=== PATIENT | female | born 1940 | race Caucasian/White ===

== ENCOUNTER 2017-05-06 17:19 | Inpatient (IN) | payer OTHER ==
--- NOTE | 2017-05-06 17:54 | DR.GENAD ---
HPI - PCP Primary Care Physician: HANNAH - Complaint/Symptoms Chief Complaint Doctors Comments: Generalized weakness, poor or intake for past few. She has also been dizzy. The son who is a nurse checked her BP and states she was orthstatic. She was started on Augmentin on 05/03/17 for a sinus infection. Chief Complaint:: FAMILY STATED "WE TOOK HER TO THE DOCTOR ON TUESDAY AND SHE HAD A SINUS INFECTION- WAS STARED ON AGUMENTIN 500MG PO BID AND SINCE SHE WILL NOT EAT OR DRINK. SHE HAS BEEN LEHARGIC" - Nurses notes reviewed Nurses Notes Review: Yes - Source History Provided: Family Member - Mode of Arrival Mode of Arrival: Wheelchair - Timing Onset of Chief Complaint: 05/03/17 Came on: Gradually - Modifying Factors Worsens:: standing Improves:: sitting/laying PMH - PMH Past Medical History: Yes Past Medical History: Alzheimers, CHF, Coronary Artery Disease, Hypertension Past Surgical History: Yes Surgical History: Hysterectomy - Family History History of Family Medical Conditions: Yes Family Medical History: Cancer, Hypertension - Social History Does patient currently use any type of tobacco product: No Have you used tobacco products in the last 12 months: No Type of Tobacco Use: None Does any household member use tobacco: No Alcohol Use: None Do you use any recreational Drugs:: No Lives With: Family Lives Where: Home - infectious screening In the last 2 months have you had wt loss of >10#?: NO Have you had fever, night sweats or hemotysis?: No Have you traveled outside the country in the last 6 months?: No Isolation: Standard ROS - Review of Systems Constitutional: Malaise, Fatigue Eyes: No Symptoms Reported ENTM: No Symptoms Reported Respiratoy: No Symptoms Reported Genitourinary: No Symptoms Reported Neurological: Weakness, Dizziness Musculoskeletal: No Symptoms Reported Integumentary: No Symptoms Reported Hematologic/Lymphatic: No Symptoms Reported Endocrine: No Symptoms Reported Psychiatric: No Symptoms Reported All Other Systems: Reviewed and Negative PE - Vital Signs Vitals: Temperature 97.8 F Pulse Rate [Apical] 69 Pulse Rate 45 Respiratory Rate 17 Blood Pressure [Right Arm] 142/62 Blood Pressure 133/61 O2 Sat by Pulse Oximetry 97 - General Limitations: No Limitations General Appearance: Alert, In No Apparent Distress - Head Head Exam: Atraumatic, Normocephalic - Eyes Eye exam: Normal Appearance, PERRL, EOMI - ENT ENT Exam: Normal Exam - Neck Neck Exam: Normal Inspection - Chest Chest Inspection: Normal Inspection, Symmetric Chest Wall Rise - Respiratory Respiratory Exam: Normal Lung Sounds Bilat - Cardiovascular Cardiovascular Exam: Bradycardia - Abdominal Exam Abdominal Exam: Normal Inspection, Normal Bowel Sounds, Soft - Extremities Extremities Exam: Normal Inspection, Normal Capillary Refill. negative: Tenderness, Edema, Joint Swelling, Calf Tenderness - Back Back Exam: Normal Inspection - Neurologic Neurological Exam: Alert, CN II-XII Intact, Reflexes Normal. negative: Oriented X3 - Psychiatric Psychiatric Exam: Normal Affect, Normal Mood, Flat Affect - Skin Skin Exam: Warm, Dry, Intact, Normal Color Course - Consultation Call Returned: 19:50 Consultation Comments: agrees with recommendation to admit to obs. - Education/Counseling Education/Counseling: Patient, Family, Counseling Educated On: Treatment, Diagnosis, Prognosis, Needs for Follow Up ROR - Labs Reviewed Result Diagrams: 05/06/17 17:30 05/06/17 17:30 Laboratory: WBC 13.1 X10^3/uL (3.6-10.0) H 05/06/17 17:30 RBC 4.79 X10^6/uL (3.5-5.4) 05/06/17 17:30 Hgb 13.7 g/dL (12.0-16.0) 05/06/17 17:30 Hct 39.9 % (36.0-47.0) 05/06/17 17:30 MCV 83.3 fL (80.0-100.0) 05/06/17 17:30 MCH 28.7 pg (27.0-34.0) 05/06/17 17:30 MCHC 34.4 g/dL (33.0-35.0) 05/06/17 17:30 RDW 14.0 % (11.6-16.5) 05/06/17 17:30 Plt Count 329 X10^3/uL (150.0-450.0) 05/06/17 17:30 MPV 8.2 fL (7.4-11.0) 05/06/17 17:30 Neut % 71.8 % (42.0-75.0) 05/06/17 17:30 Lymph % 24.3 % (21.0-51.0) 05/06/17 17:30 Weld % 3.2 % (0.0-13.0) 05/06/17 17:30 Eos % 0.2 % (0.9-2.9) L 05/06/17 17:30 Baso % 0.5 % (0.2-1.0) 05/06/17 17:30 Neut # 9.4 x10^3/uL (2.2-4.8) H 05/06/17 17:30 Lymph # 3.2 X10^3/uL (1.3-2.9) H 05/06/17 17:30 Weld # 0.4 x10^3/uL (0.3-0.8) 05/06/17 17:30 Eos # 0.0 x10^3/uL (0.0-0.2) 05/06/17 17:30 Baso # 0.1 X10^3/uL (0.0-0.1) 05/06/17 17:30 Absolute Nucleated RBC 0.0 /100WBC 05/06/17 17:30 Sodium 137 mmol/L (136-145) 05/06/17 17:30 Corrected Sodium 138 mmol/L (136-145) 05/06/17 17:30 Potassium 3.2 mmol/L (3.5-5.1) L 05/06/17 17:30 Chloride 97 mmol/L (98-107) L 05/06/17 17:30 Carbon Dioxide 31.4 mmol/L (21-32) 05/06/17 17:30 BUN 22 mg/dL (7-18) H 05/06/17 17:30 Creatinine 1.08 mg/dL (0.55-1.02) H 05/06/17 17:30 Est GFR (MDRD) Af Amer > 60 (>60) 05/06/17 17:30 Est GFR (MDRD) Non-Af 52 (>60) L 05/06/17 17:30 Glucose 147 mg/dL (65-99) H 05/06/17 17:30 Calcium 9.2 mg/dL (8.5-10.1) 05/06/17 17:30 Corrected Calcium 9.8 mg/dL (8.5-10.1) 05/06/17 17:30 Total Bilirubin 0.50 mg/dL (0.2-1.0) 05/06/17 17:30 AST 20 Units/L (15-37) 05/06/17 17:30 ALT 29 Units/L (12-78) 05/06/17 17:30 Alkaline Phosphatase 138 Units/L (46-116) H 05/06/17 17:30 Total Protein 7.5 g/dL (6.4-8.2) 05/06/17 17:30 Albumin 3.2 g/dL (3.4-5.0) L 05/06/17 17:30 Globulin 4.3 g/dL (2.5-4.5) 05/06/17 17:30 Albumin/Globulin Ratio 0.7 Ratio (1.1-2.1) L 05/06/17 17:30 TSH 3rd Generation 0.597 uIU/mL (0.358-3.74) 05/06/17 17:30 Specimen Type Catherized urine 05/06/17 18:07 Urine Color Dark yellow (YELLOW) 05/06/17 18:07 Urine Appearance Clear (CLEAR) 05/06/17 18:07 Urine pH 7.0 (5.0 - 8.0) 05/06/17 18:07 Ur Specific Labelle 1.015 (1.000-1.030) 05/06/17 18:07 Urine Protein 1+ (NEGATIVE) 05/06/17 18:07 Urine Glucose (UA) Negative (NEGATIVE) 05/06/17 18:07 Urine Ketones Negative (NEGATIVE) 05/06/17 18:07 Urine Occult Blood Negative (NEGATIVE) 05/06/17 18:07 Urine Nitrite Negative (NEGATIVE) 05/06/17 18:07 Urine Bilirubin Negative (NEGATIVE) 05/06/17 18:07 Urine Urobilinogen 1+ (NORMAL) 05/06/17 18:07 Ur Leukocyte Esterase 1+ (NEGATIVE) 05/06/17 18:07 Urine RBC None seen /HPF (NEGATIVE) 05/06/17 18:07 Urine WBC 0-2 /HPF (NEGATIVE) 05/06/17 18:07 Ur Squamous Epith Cells Rare /HPF (NEGATIVE) 05/06/17 18:07 Urine Bacteria Negative /HPF (NEGATIVE) 05/06/17 18:07 Urine Mucus Moderate /HPF (NEGATIVE) 05/06/17 18:07 Ur Culture Indicated? No/not indicated 05/06/17 18:07 - XRAY XRAY Interpreted by: Self (NAD) - EKG Rate: 48 [place]: Normal Rhythm: SB Block: None Hypertrophy: None - Diagnosis Discharge Problem: Weakness generalized, Bradycardia, Hypokalemia, Renal azotemia, Alzheimer's dementia - Discharge Plan Disposition: ADMITTED INPATIENT Condition: Stable - Follow ups/Referrals Follow ups/Referrals: BILLIE YOUNG [Primary Care Provider] - 3 days - Instructions
[2017-05-06] MEDS ORDERED: NS 1000 ML 1,000 ML IV ONE (18:10)
[2017-05-06 18:13] LABS: BASOPHILS # (AUTO) 0.1 X10^3/uL (0.0-0.1); BASOPHILS % (AUTO) 0.5 % (0.2-1.0); EOSINOPHILS % (AUTO) 0.2 % (0.9-2.9); HEMATOCRIT 39.9 % (36.0-47.0); HEMOGLOBIN 13.7 g/dL (12.0-16.0); LYMPHOCYTES # (AUTO) 3.2 X10^3/uL (1.3-2.9); LYMPHOCYTES % (AUTO) 24.3 % (21.0-51.0); MEAN CORPUSCULAR HEMOGLOBIN 28.7 pg (27.0-34.0); MEAN CORPUSCULAR HGB CONC 34.4 g/dL (33.0-35.0); MEAN CORPUSCULAR VOLUME 83.3 fL (80.0-100.0); MEAN PLATELET VOLUME 8.2 fL (7.4-11.0); MONOCYTES # (AUTO) 0.4 x10^3/uL (0.3-0.8); MONOCYTES % (AUTO) 3.2 % (0.0-13.0); NEUTROPHILS # (AUTO) 9.4 x10^3/uL (2.2-4.8); NEUTROPHILS % (AUTO) 71.8 % (42.0-75.0); PLATELET COUNT 329 X10^3/uL (150.0-450.0); RED BLOOD COUNT 4.79 X10^6/uL (3.5-5.4); WHITE BLOOD COUNT 13.1 X10^3/uL (3.6-10.0)
[2017-05-06] MEDS ORDERED: NS 1000 ML 1,000 ML ONE (18:16)
--- NOTE | 2017-05-06 18:18 | RAD ---
Examination: Portable AP chest History: Lethargic, sinus infection. Comparison reference: None Findings: Normal heart size with essentially clear lungs and pleural spaces. Impression: No acute chest disease demonstrated. Reported By:
[2017-05-06 18:19] LABS: BILIRUBIN,URINE NEGATIVE (NEGATIVE); BLOOD/HEMOGLOBIN,URINE NEGATIVE (NEGATIVE); GLUCOSE, URINE NEGATIVE (NEGATIVE); KETONES,URINE NEGATIVE (NEGATIVE); LEUKOCYTE ESTERASE ,URINE 1+ (NEGATIVE); NITRITES,URINE NEGATIVE (NEGATIVE); PROTEIN,URINE 1+ (NEGATIVE); UROBILINOGEN,URINE 1+ (NORMAL)
[2017-05-06 18:30] LABS: ALANINE AMINOTRANSFERASE 29 Units/L (12-78); ALBUMIN 3.2 g/dL (3.4-5.0); ALKALINE PHOSPHATASE 138 Units/L (46-116); ASPARTATE AMINO TRANSFERASE 20 Units/L (15-37); BLOOD UREA NITROGEN 22 mg/dL (7-18); CALCIUM 9.2 mg/dL (8.5-10.1); CARBON DIOXIDE 31.4 mmol/L (21-32); CHLORIDE 97 mmol/L (98-107); COR CA(FOR HYPOALB) 9.8 mg/dL (8.5-10.1); COR NA(FOR HYPERGLY) 138 mmol/L (136-145); CREATININE 1.08 mg/dL (0.55-1.02); SODIUM 137 mmol/L (136-145); TOTAL PROTEIN 7.5 g/dL (6.4-8.2); TSH (3RD GENERATION) 0.597 uIU/mL (0.358-3.74); eGFR BLACK RACES > 60 (>60); eGFR NON BLACK RACES 52 (>60)
[2017-05-06 18:43] LABS: APPEARANCE,URINE CLEAR (CLEAR); BACTERIA,URINE NEGATIVE /HPF (NEGATIVE); COLOR,URINE DARK YELLOW (YELLOW); MUCUS,URINE MODERATE /HPF (NEGATIVE); RBC,URINE NONE SEEN /HPF (NEGATIVE); SQUAMOUS EPITHELIAL CELL,UR RARE /HPF (NEGATIVE)
[2017-05-06] MEDS ORDERED: K-LYTE EFFERVESCENT ONE (19:32)
[2017-05-06] MEDS: K-LYTE EFFERVESCENT PO ONE (19:40)
[2017-05-06] MEDS ORDERED: TESSALON PERLES PO PRN ×2 (20:02→21:42)
[2017-05-06] MEDS ORDERED: LEVSIN/MAALOX/LIDOC VISC PO PRN ×2 (20:02→21:42)
[2017-05-06] MEDS ORDERED: NORVASC TAB 5 MG PO ONE (20:06)
[2017-05-06] MEDS: NS 1000 ML 1,000 ML IV SCH (20:59)
[2017-05-06] MEDS ORDERED: PATIENT'S HOME MEDICATION (Memantine Hcl [Namenda] 1 TAB) PO SCH (21:00)
[2017-05-06] MEDS ORDERED: RISPERIDONE PO SCH (21:00)
[2017-05-06] MEDS: LIPITOR TAB 10 MG PO SCH (22:04)
[2017-05-06] MEDS: ARICEPT TAB 10 MG PO SCH (22:04)
[2017-05-06] MEDS: NAMENDA TAB 10 MG PO SCH (22:05)
[2017-05-06] MEDS: PROzac PO SCH (22:05)
[2017-05-06] MEDS: AUGMENTIN 500 MG/125 MG TAB PO SCH (22:05)
[2017-05-07 05:30] LABS: BASOPHILS % (AUTO) 0.2 % (0.2-1.0); EOSINOPHILS % (AUTO) 0.3 % (0.9-2.9); HEMATOCRIT 35.7 % (36.0-47.0); HEMOGLOBIN 12.3 g/dL (12.0-16.0); LYMPHOCYTES # (AUTO) 2.7 X10^3/uL (1.3-2.9); LYMPHOCYTES % (AUTO) 24.2 % (21.0-51.0); MEAN CORPUSCULAR HEMOGLOBIN 28.8 pg (27.0-34.0); MEAN CORPUSCULAR HGB CONC 34.5 g/dL (33.0-35.0); MEAN CORPUSCULAR VOLUME 83.5 fL (80.0-100.0); MONOCYTES # (AUTO) 0.5 x10^3/uL (0.3-0.8); MONOCYTES % (AUTO) 4.7 % (0.0-13.0); NEUTROPHILS % (AUTO) 70.6 % (42.0-75.0); PLATELET COUNT 293 X10^3/uL (150.0-450.0); RED BLOOD COUNT 4.27 X10^6/uL (3.5-5.4); WHITE BLOOD COUNT 11.3 X10^3/uL (3.6-10.0)
[2017-05-07 05:55] LABS: ALANINE AMINOTRANSFERASE 24 Units/L (12-78); ALBUMIN 2.6 g/dL (3.4-5.0); ALKALINE PHOSPHATASE 114 Units/L (46-116); ASPARTATE AMINO TRANSFERASE 17 Units/L (15-37); BLOOD UREA NITROGEN 17 mg/dL (7-18); CARBON DIOXIDE 28.5 mmol/L (21-32); CHLORIDE 102 mmol/L (98-107); COR CA(FOR HYPOALB) 9.1 mg/dL (8.5-10.1); COR NA(FOR HYPERGLY) 138 mmol/L (136-145); CREATININE 0.85 mg/dL (0.55-1.02); SODIUM 138 mmol/L (136-145); TOTAL PROTEIN 6.2 g/dL (6.4-8.2); eGFR BLACK RACES > 60 (>60); eGFR NON BLACK RACES > 60 (>60)
[2017-05-07] MEDS ORDERED: POTASSIUM CHL 60 MEQ/NS 0.45% 500 ML IV PRN (06:07)
[2017-05-07] MEDS ORDERED: K-RIDER 10 MEQ/NS 100 ML 10 MEQ/100 ML BAG IV PRN (06:07)
[2017-05-07] MEDS ORDERED: MAGNESIUM SULFATE 1 GM/100 mL PREMIX 1 GM/100 ML BAG IV PRN (06:07)
[2017-05-07] MEDS ORDERED: POTASSIUM CHL 40 MEQ/NS 0.45% 500 ML IV PRN (06:07)
[2017-05-07] MEDS ORDERED: POTASSIUM CHLORIDE LIQ 20 MEQ UDC PO PRN (06:07)
[2017-05-07] MEDS ORDERED: K-LYTE EFFERVESCENT PO PRN (06:07)
[2017-05-07] MEDS: SYNTHROID 125 mcg TAB PO SCH (06:07)
[2017-05-07] MEDS ORDERED: MAG-OX TAB PO PRN (06:07)
[2017-05-07] MEDS: AUGMENTIN 500 MG/125 MG TAB PO SCH ×2 (08:58→20:48)
[2017-05-07] MEDS ORDERED: FLUVIRIN IM ONE (09:00)
[2017-05-07] MEDS ORDERED: PATIENT'S HOME MEDICATION (Risperidone [Risperidone] 1 TAB) PO SCH (09:00)
[2017-05-07] MEDS ORDERED: PREVNAR 13 IM ONE (09:00)
[2017-05-07] MEDS: NORVASC TAB 5 MG PO SCH (09:01)
[2017-05-07] MEDS: NS 1000 ML 1,000 ML IV SCH ×2 (09:02→21:30)
--- NOTE | 2017-05-07 15:57 | CT ---
HISTORY: Altered mental status Study: CT brain without contrast Comparison: None Technique: Multiple axial images of the brain were obtained from the skull base to the vertex without administra tion of IV contrast. Dose reduction techniques including Automated Exposure Control (AEC) and adjust ment of mA and kV were utilized. Findings: There is generalized atrophy and nonspecific white matter hypoattenuation likely related to moderate to advanced microvascular ischemic changes. No evidence of acute hemorrhage, midline shift, mass eff ect or abnormal extra-axial fluid collection. The ventricular system is symmetric and nondilated. T he soft tissues and osseous structures are unremarkable. The visualized paranasal sinuses are clear. IMPRESSION: 1. Cerebral volume loss and nonspecific white matter changes likely due to chronic microvascular dise ase. No acute intracranial abnormality identified. Reported By:
[2017-05-07] MEDS: HYDROCHLOROTHIAZIDE 25 MG TAB PO SCH (16:38)
[2017-05-07 17:59] LABS: BLOOD UREA NITROGEN 10 mg/dL (7-18); CALCIUM 8.3 mg/dL (8.5-10.1); CARBON DIOXIDE 28.5 mmol/L (21-32); CHLORIDE 106 mmol/L (98-107); COR NA(FOR HYPERGLY) 142 mmol/L (136-145); CREATININE 0.92 mg/dL (0.55-1.02); SODIUM 141 mmol/L (136-145); eGFR BLACK RACES > 60 (>60); eGFR NON BLACK RACES > 60 (>60)
[2017-05-07] MEDS: ARICEPT TAB 10 MG PO SCH (20:48)
[2017-05-07] MEDS: LIPITOR TAB 10 MG PO SCH (20:48)
[2017-05-07] MEDS: NAMENDA TAB 10 MG PO SCH (20:48)
[2017-05-07] MEDS: PROzac PO SCH (20:49)
[2017-05-08 06:13] LABS: BASOPHILS % (AUTO) 0.4 % (0.2-1.0); EOSINOPHILS # (AUTO) 0.1 x10^3/uL (0.0-0.2); EOSINOPHILS % (AUTO) 0.9 % (0.9-2.9); HEMATOCRIT 35.1 % (36.0-47.0); HEMOGLOBIN 11.9 g/dL (12.0-16.0); LYMPHOCYTES # (AUTO) 3.3 X10^3/uL (1.3-2.9); LYMPHOCYTES % (AUTO) 29.4 % (21.0-51.0); MEAN CORPUSCULAR HEMOGLOBIN 28.4 pg (27.0-34.0); MEAN CORPUSCULAR VOLUME 83.6 fL (80.0-100.0); MEAN PLATELET VOLUME 8.2 fL (7.4-11.0); MONOCYTES # (AUTO) 0.7 x10^3/uL (0.3-0.8); MONOCYTES % (AUTO) 5.8 % (0.0-13.0); NEUTROPHILS # (AUTO) 7.1 x10^3/uL (2.2-4.8); NEUTROPHILS % (AUTO) 63.5 % (42.0-75.0); PLATELET COUNT 302 X10^3/uL (150.0-450.0); WHITE BLOOD COUNT 11.3 X10^3/uL (3.6-10.0)
[2017-05-08] MEDS: K-LYTE EFFERVESCENT PO ONE ×2 (06:16→06:17)
[2017-05-08] MEDS: SYNTHROID 125 mcg TAB PO SCH (06:20)
[2017-05-08 06:25] LABS: ALANINE AMINOTRANSFERASE 23 Units/L (12-78); ALBUMIN 2.5 g/dL (3.4-5.0); ALKALINE PHOSPHATASE 105 Units/L (46-116); ASPARTATE AMINO TRANSFERASE 16 Units/L (15-37); BLOOD UREA NITROGEN 7 mg/dL (7-18); CALCIUM 8.1 mg/dL (8.5-10.1); CARBON DIOXIDE 26.9 mmol/L (21-32); CHLORIDE 105 mmol/L (98-107); COR CA(FOR HYPOALB) 9.3 mg/dL (8.5-10.1); CREATININE 0.89 mg/dL (0.55-1.02); SODIUM 140 mmol/L (136-145); TOTAL PROTEIN 5.9 g/dL (6.4-8.2); eGFR BLACK RACES > 60 (>60); eGFR NON BLACK RACES > 60 (>60)
[2017-05-08] MEDS: AUGMENTIN 500 MG/125 MG TAB PO SCH (09:00)
[2017-05-08] MEDS: NORVASC TAB 5 MG PO SCH (09:00)
[2017-05-08] MEDS ORDERED: NS + KCL 40 MEQ/L 1,000 ML IV SCH (09:00)
[2017-05-08] MEDS: HYDROCHLOROTHIAZIDE 25 MG TAB PO SCH (09:00)
[2017-05-08] MEDS: NS + KCL 20 MEQ/L 1,000 ML IV SCH ×2 (09:38→22:29)
--- NOTE | 2017-05-08 15:57 | RAD ---
History: Cough Study: Portable AP chest Comparison: May 06 Reported By:
[2017-05-08] MEDS ORDERED: ROCEPHIN VIAL 1 GM 1 GM in NS 50 ML IV + SPIKE MINIBAG* 50 ML IV SCH (19:15)
[2017-05-08] MEDS: NAMENDA TAB 10 MG PO SCH (21:07)
[2017-05-08] MEDS: LIPITOR TAB 10 MG PO SCH (21:08)
[2017-05-08] MEDS: PROzac PO SCH (21:08)
[2017-05-08] MEDS: NS 1000 ML 1,000 ML IV SCH (21:09)
[2017-05-08] MEDS: ARICEPT TAB 10 MG PO SCH (21:23)
[2017-05-08] MEDS: NS IV SCH (22:30)
[2017-05-08] MEDS: ROCEPHIN IV SCH (22:30)
[2017-05-09 05:30] LABS: BLOOD UREA NITROGEN 5 mg/dL (7-18); CALCIUM 8.2 mg/dL (8.5-10.1); CARBON DIOXIDE 26.5 mmol/L (21-32); CHLORIDE 107 mmol/L (98-107); CREATININE 0.86 mg/dL (0.55-1.02); SODIUM 141 mmol/L (136-145); eGFR BLACK RACES > 60 (>60); eGFR NON BLACK RACES > 60 (>60)
[2017-05-09 05:32] LABS: BASOPHILS % (AUTO) 0.5 % (0.2-1.0); EOSINOPHILS # (AUTO) 0.1 x10^3/uL (0.0-0.2); EOSINOPHILS % (AUTO) 1.4 % (0.9-2.9); HEMATOCRIT 34.6 % (36.0-47.0); LYMPHOCYTES # (AUTO) 3.5 X10^3/uL (1.3-2.9); LYMPHOCYTES % (AUTO) 32.9 % (21.0-51.0); MEAN CORPUSCULAR HEMOGLOBIN 29.1 pg (27.0-34.0); MEAN CORPUSCULAR HGB CONC 34.6 g/dL (33.0-35.0); MEAN CORPUSCULAR VOLUME 84.2 fL (80.0-100.0); MEAN PLATELET VOLUME 8.1 fL (7.4-11.0); MONOCYTES # (AUTO) 0.7 x10^3/uL (0.3-0.8); MONOCYTES % (AUTO) 6.4 % (0.0-13.0); NEUTROPHILS # (AUTO) 6.3 x10^3/uL (2.2-4.8); NEUTROPHILS % (AUTO) 58.8 % (42.0-75.0); PLATELET COUNT 296 X10^3/uL (150.0-450.0); RED BLOOD COUNT 4.12 X10^6/uL (3.5-5.4); WHITE BLOOD COUNT 10.7 X10^3/uL (3.6-10.0)
[2017-05-09] MEDS: SYNTHROID 125 mcg TAB PO SCH (08:13)
[2017-05-09] MEDS: NORVASC TAB 5 MG PO SCH (08:14)
[2017-05-09] MEDS: HYDROCHLOROTHIAZIDE 25 MG TAB PO SCH (08:14)
[2017-05-09] MEDS: ROCEPHIN IV SCH (08:55)
[2017-05-09] MEDS: NS IV SCH (08:55)
[2017-05-09] MEDS: NS 1000 ML 1,000 ML IV SCH ×2 (09:56→22:13)
[2017-05-09] MEDS: NS + KCL 20 MEQ/L 1,000 ML IV SCH ×2 (10:20→12:52)
[2017-05-09] MEDS: NAMENDA TAB 10 MG PO SCH (20:37)
[2017-05-09] MEDS: PROzac PO SCH (20:37)
[2017-05-09] MEDS: LIPITOR TAB 10 MG PO SCH (20:38)
[2017-05-09] MEDS: ARICEPT TAB 10 MG PO SCH (20:38)
[2017-05-10] MEDS: NS + KCL 20 MEQ/L 1,000 ML IV SCH (01:42)
[2017-05-10] MEDS: NS 1000 ML 1,000 ML IV SCH (03:51)
[2017-05-10 06:08] LABS: BASOPHILS % (AUTO) 0.5 % (0.2-1.0); EOSINOPHILS # (AUTO) 0.2 x10^3/uL (0.0-0.2); EOSINOPHILS % (AUTO) 1.7 % (0.9-2.9); HEMATOCRIT 35.3 % (36.0-47.0); HEMOGLOBIN 12.5 g/dL (12.0-16.0); LYMPHOCYTES # (AUTO) 3.1 X10^3/uL (1.3-2.9); LYMPHOCYTES % (AUTO) 30.6 % (21.0-51.0); MEAN CORPUSCULAR HEMOGLOBIN 29.1 pg (27.0-34.0); MEAN CORPUSCULAR HGB CONC 35.5 g/dL (33.0-35.0); MEAN CORPUSCULAR VOLUME 81.9 fL (80.0-100.0); MONOCYTES # (AUTO) 0.6 x10^3/uL (0.3-0.8); MONOCYTES % (AUTO) 6.2 % (0.0-13.0); NEUTROPHILS # (AUTO) 6.1 x10^3/uL (2.2-4.8); PLATELET COUNT 312 X10^3/uL (150.0-450.0)
[2017-05-10 06:16] LABS: ALANINE AMINOTRANSFERASE 25 Units/L (12-78); ALBUMIN 2.5 g/dL (3.4-5.0); ALKALINE PHOSPHATASE 123 Units/L (46-116); ASPARTATE AMINO TRANSFERASE 16 Units/L (15-37); BLOOD UREA NITROGEN 6 mg/dL (7-18); CALCIUM 8.5 mg/dL (8.5-10.1); CHLORIDE 104 mmol/L (98-107); COR CA(FOR HYPOALB) 9.7 mg/dL (8.5-10.1); CREATININE 0.88 mg/dL (0.55-1.02); SODIUM 139 mmol/L (136-145); TOTAL PROTEIN 6.3 g/dL (6.4-8.2); eGFR BLACK RACES > 60 (>60); eGFR NON BLACK RACES > 60 (>60)
[2017-05-10 06:58] VITALS: BMI 22.4
--- NOTE | 2017-05-10 10:45 | MRI ---
STUDY: MRI OF THE BRAIN WITHOUT AND WITH GADOLINIUM HISTORY: Confusion. Weakness. Altered mental status. Technique: Multiplanar multi-sequence MRI of the brain was obtained utilizing standard departmental p rotocol. Sagittal and axial T1, axial T2, FLAIR, diffusion (DWI/ADC) images through the brain were pe rformed. 13 cc of Omniscan was administered intravenously without reported complication following acquisition of informed written consent. Post gadolinium axial and coronal T1 weighted images were also performed and reviewed. Comparison: Head CT from May 07, 2017. Findings: Pre gadolinium brain: The sulci, cisterns and ventricles are prominent consistent with diffuse volume loss. There are confluent and scattered foci of T2 prolongation in the periventricular and subcortic al white matter of both hemispheres. This is a nonspecific finding which likely represents microangio pathic change in a patient of this age. There is no evidence of acute territorial infarction, hemorrhage, mass, mass effect, or midline shift . There are no abnormal intra-axial or extra-axial fluid collections. The major intracranial vascular flow voids appear intact. The left vertebral artery is dominant. Post gadolinium brain: Following the uneventful administration of intravenous gadolinium, there is no evidence of abnormal parenchymal or leptomeningeal enhancement. IMPRESSION: 1. No evidence of acute intracranial abnormality. 2. Nonspecific white matter change and volume loss. Reported By:
[2017-05-10] MEDS: NORVASC TAB 5 MG PO SCH (12:54)
[2017-05-10] MEDS: NS IV SCH (12:55)
[2017-05-10] MEDS: HYDROCHLOROTHIAZIDE 25 MG TAB PO SCH (12:55)
[2017-05-10] MEDS: ROCEPHIN IV SCH (12:55)
[2017-05-10] MEDS: SYNTHROID 125 mcg TAB PO SCH (12:57)
[2017-05-10] MEDS: PROzac PO SCH (20:39)
[2017-05-10] MEDS: ARICEPT TAB 10 MG PO SCH (20:39)
[2017-05-10] MEDS: NAMENDA TAB 10 MG PO SCH (20:40)
[2017-05-10] MEDS: LIPITOR TAB 10 MG PO SCH (20:40)
[2017-05-11] MEDS: NS 1000 ML 1,000 ML IV SCH ×3 (02:16→13:15)
[2017-05-11] MEDS: NS + KCL 20 MEQ/L 1,000 ML IV SCH ×4 (02:17→22:40)
[2017-05-11 05:55] LABS: ALANINE AMINOTRANSFERASE 25 Units/L (12-78); ALBUMIN 2.8 g/dL (3.4-5.0); ALKALINE PHOSPHATASE 138 Units/L (46-116); ASPARTATE AMINO TRANSFERASE 16 Units/L (15-37); BLOOD UREA NITROGEN 6 mg/dL (7-18); CALCIUM 9.1 mg/dL (8.5-10.1); CARBON DIOXIDE 28.6 mmol/L (21-32); CHLORIDE 102 mmol/L (98-107); COR CA(FOR HYPOALB) 10.1 mg/dL (8.5-10.1); COR NA(FOR HYPERGLY) 139 mmol/L (136-145); CREATININE 0.85 mg/dL (0.55-1.02); SODIUM 139 mmol/L (136-145); TOTAL PROTEIN 6.9 g/dL (6.4-8.2); eGFR BLACK RACES > 60 (>60); eGFR NON BLACK RACES > 60 (>60)
[2017-05-11 05:59] LABS: BASOPHILS # (AUTO) 0.1 X10^3/uL (0.0-0.1); BASOPHILS % (AUTO) 0.8 % (0.2-1.0); EOSINOPHILS # (AUTO) 0.2 x10^3/uL (0.0-0.2); EOSINOPHILS % (AUTO) 1.9 % (0.9-2.9); HEMATOCRIT 38.1 % (36.0-47.0); HEMOGLOBIN 13.3 g/dL (12.0-16.0); LYMPHOCYTES # (AUTO) 3.1 X10^3/uL (1.3-2.9); LYMPHOCYTES % (AUTO) 31.1 % (21.0-51.0); MEAN CORPUSCULAR HGB CONC 34.9 g/dL (33.0-35.0); MEAN CORPUSCULAR VOLUME 83.3 fL (80.0-100.0); MEAN PLATELET VOLUME 8.1 fL (7.4-11.0); MONOCYTES # (AUTO) 0.6 x10^3/uL (0.3-0.8); MONOCYTES % (AUTO) 6.4 % (0.0-13.0); NEUTROPHILS % (AUTO) 59.8 % (42.0-75.0); PLATELET COUNT 337 X10^3/uL (150.0-450.0); RED BLOOD COUNT 4.57 X10^6/uL (3.5-5.4); RED CELL DISTRIBUTION WIDTH 14.3 % (11.6-16.5)
[2017-05-11] MEDS: SYNTHROID 125 mcg TAB PO SCH (06:00)
[2017-05-11] MEDS: ROCEPHIN IV SCH (09:00)
[2017-05-11] MEDS: HYDROCHLOROTHIAZIDE 25 MG TAB PO SCH (09:00)
[2017-05-11] MEDS: NS IV SCH (09:00)
[2017-05-11] MEDS: NORVASC TAB 5 MG PO SCH (09:00)
[2017-05-11] MEDS ORDERED: K-DUR TAB 20 MEQ PO ONE (09:11)
[2017-05-11] MEDS ORDERED: K-DUR TAB 20 MEQ PO PRN (09:17)
[2017-05-11] MEDS: ARICEPT TAB 10 MG PO SCH (20:16)
[2017-05-11] MEDS: LIPITOR TAB 10 MG PO SCH (20:17)
[2017-05-11] MEDS: NAMENDA TAB 10 MG PO SCH (20:17)
[2017-05-11] MEDS: PROzac PO SCH (20:17)
[2017-05-12 05:30] LABS: BASOPHILS # (AUTO) 0.1 X10^3/uL (0.0-0.1); BASOPHILS % (AUTO) 0.7 % (0.2-1.0); EOSINOPHILS # (AUTO) 0.2 x10^3/uL (0.0-0.2); EOSINOPHILS % (AUTO) 2.3 % (0.9-2.9); HEMATOCRIT 35.1 % (36.0-47.0); LYMPHOCYTES # (AUTO) 3.1 X10^3/uL (1.3-2.9); LYMPHOCYTES % (AUTO) 34.6 % (21.0-51.0); MEAN CORPUSCULAR HEMOGLOBIN 28.8 pg (27.0-34.0); MEAN CORPUSCULAR HGB CONC 34.1 g/dL (33.0-35.0); MEAN CORPUSCULAR VOLUME 84.5 fL (80.0-100.0); MONOCYTES # (AUTO) 0.6 x10^3/uL (0.3-0.8); MONOCYTES % (AUTO) 6.6 % (0.0-13.0); NEUTROPHILS # (AUTO) 4.9 x10^3/uL (2.2-4.8); NEUTROPHILS % (AUTO) 55.8 % (42.0-75.0); PLATELET COUNT 308 X10^3/uL (150.0-450.0); RED BLOOD COUNT 4.15 X10^6/uL (3.5-5.4); RED CELL DISTRIBUTION WIDTH 14.6 % (11.6-16.5); WHITE BLOOD COUNT 8.9 X10^3/uL (3.6-10.0)
[2017-05-12 05:40] LABS: ALANINE AMINOTRANSFERASE 24 Units/L (12-78); ALBUMIN 2.5 g/dL (3.4-5.0); ALKALINE PHOSPHATASE 120 Units/L (46-116); ASPARTATE AMINO TRANSFERASE 14 Units/L (15-37); BLOOD UREA NITROGEN 8 mg/dL (7-18); CALCIUM 8.5 mg/dL (8.5-10.1); CARBON DIOXIDE 27.5 mmol/L (21-32); CHLORIDE 104 mmol/L (98-107); COR CA(FOR HYPOALB) 9.7 mg/dL (8.5-10.1); CREATININE 0.85 mg/dL (0.55-1.02); SODIUM 140 mmol/L (136-145); TOTAL PROTEIN 6.1 g/dL (6.4-8.2); eGFR BLACK RACES > 60 (>60); eGFR NON BLACK RACES > 60 (>60)
[2017-05-12] MEDS: NS 1000 ML 1,000 ML IV SCH (06:11)
[2017-05-12] MEDS: NS + KCL 20 MEQ/L 1,000 ML IV SCH (06:12)
[2017-05-12] MEDS: SYNTHROID 125 mcg TAB PO SCH (06:12)
[2017-05-12] MEDS: ROCEPHIN IV SCH (09:57)
[2017-05-12] MEDS: NS IV SCH (09:57)
[2017-05-12] MEDS: HYDROCHLOROTHIAZIDE 25 MG TAB PO SCH (09:57)
[2017-05-12] MEDS: NORVASC TAB 5 MG PO SCH (09:57)
[2017-05-12 12:48] VITALS: BP 115/57
== END 2017-05-12 14:45 | disposition home or self-care (01) | DRG 948 ==
LOC: ER 17:37 → ICU 19:57 → OBSVTOIN 05-08 13:00
PROVIDERS: ADMIT Internal Medicine; ATTEND Internal Medicine
PROC: 3E0234Z Introduction of Serum, Toxoid and Vaccine into Muscle, Percutaneous Approach (ICD-10-PCS; principal; 2017-05-07)
PROC: 3E0234Z Introduction of Serum, Toxoid and Vaccine into Muscle, Percutaneous Approach (ICD-10-PCS; 2017-05-07)
DX: R41.82 Altered mental status, unspecified (principal); E87.6 Hypokalemia; J20.8 Acute bronchitis due to other specified organisms; R00.1 Bradycardia, unspecified; I25.10 Atherosclerotic heart disease of native coronary artery without angina pectoris; I10 Essential (primary) hypertension; G30.8 Other Alzheimer's disease; F02.80 Dementia in other diseases classified elsewhere, unspecified severity, without behavioral disturbance, psychotic disturbance, mood disturbance, and anxiety; R79.89 Other specified abnormal findings of blood chemistry; R26.89 Other abnormalities of gait and mobility; R94.31 Abnormal electrocardiogram [ECG] [EKG]; Z23 Encounter for immunization; R48.8 Other symbolic dysfunctions; Z66 Do not resuscitate
CPT/HCPCS: 36415; 70450; 70553; 71010; 80048; 80053; 81001; 83735; 84443; 85025; 87040; 87086; 90686; 93005; 93010; 97535; 99218; 99231; 99284; 99285; A4216; A4222; 90670; G0378; J0696

== ENCOUNTER → 2017-05-16 | Outpatient (CLI) | payer OTHER ==
[2017-05-12 12:48] VITALS: BP 115/57
--- NOTE | 2017-05-16 18:40 | RAD ---
Examination: Left ankle, three views History: Swelling left foot and ankle Findings: Mild soft tissue swelling suggested but no evidence for fracture, dislocation, bone destruc tion or ankle joint asymmetry. Impression: No acute osseous abnormality demonstrated. Reported By:
--- NOTE | 2017-05-16 18:42 | RAD ---
Examination: Left foot, three views History: Pain and swelling Findings: No definite fracture, dislocation or osteolytic process. Plantar calcaneal enthesophyte. No articular deformity or soft tissue calcification. Impression: No acute process identified. Reported By:
== END ==
LOC: RAD 13:58
PROVIDERS: ATTEND Internal Medicine
DX: M25.572 Pain in left ankle and joints of left foot (principal); M79.89 Other specified soft tissue disorders
CPT/HCPCS: 73610; 73630

== ENCOUNTER 2017-06-30 03:54 | Emergency (ER) | payer OTHER ==
[2017-06-30 04:09] VITALS: BP 136/65; BMI 21.6
--- NOTE | 2017-06-30 04:22 | DR.GENAD ---
HPI - PCP Primary Care Physician: CATHERINE - HPI Comment HPI Comment: SHE FELL IN THE CARE HOME. FOUND ON THE FLOOR. - Complaint/Symptoms Chief Complaint Doctors Comments: FELL IN THE CARE HOME. PATIENT SLEEPY. HEMATOMA TO FOREHEAD NOTED. Chief Complaint:: FELL APROX 0330, HEMATOMA TO FOREHEAD AND NOSE, Self Treatment fo Chief Complaint: ICE PACK - Nurses notes reviewed Nurses Notes Review: Yes - Source History Provided: Patient, Group Home - Mode of Arrival Mode of Arrival: Stretcher - Timing Onset of Chief Complaint: 06/30/17 Came on: Suddenly - Duration Duration: Constant Duration: Minutes - Severity Severity: Moderate PMH - PMH Past Medical History: Yes Past Medical History: Alzheimers, CHF, Coronary Artery Disease, Hypertension Past Surgical History: Yes Surgical History: Hysterectomy - Family History History of Family Medical Conditions: Yes Family Medical History: Diabetes Mellitus, [place], Heart Failure, Hypertension - Social History Does patient currently use any type of tobacco product: No Have you used tobacco products in the last 12 months: No Type of Tobacco Use: None Does any household member use tobacco: No Alcohol Use: None Do you use any recreational Drugs:: No Lives With: Other Lives Where: Group Home - infectious screening In the last 2 months have you had wt loss of >10#?: NO Have you had fever, night sweats or hemotysis?: No Have you traveled outside the country in the last 6 months?: No Isolation: Standard ROS - Review of Systems Constitutional: Other (SLEEPY) Eyes: Other (FOREHEAD HEMATOMA) ENTM: Nose Pain. negative: Ear Pain, Epistaxis Respiratoy: negative: Wheezing, Hemoptysis Cardiovascular: negative: Edema, Cyanosis Gastrointestinal/Abdominal: negative: Diarrhea, Nausea, Vomiting Genitourinary: negative: Hematuria, Bleeding Neurological: Problems Walking Musculoskeletal: Neck Pain, Other (NOSE DEFORMITY.) Integumentary: Bruises Hematologic/Lymphatic: Easy Bleeding, Easy Bruising Endocrine: negative: Flushing Unable to Obtain Due To: Altered mental status PE - Vital Signs Vitals: Temperature 98.3 F Pulse Rate 90 Respiratory Rate 18 Blood Pressure [Right Arm] 115/57 Blood Pressure 136/65 O2 Sat by Pulse Oximetry 98 - General Limitations: Altered Mental Status General Appearance: Other (SLEEPY BUT AROUSABLE.) - Head Head Exam: Other (FOREHEAD HEMATOMA MIDLINE AREA.) - Eyes Eye exam: PERRL - ENT ENT Exam: Normal Oropharynx, Normal External Ear Exam, TM's Normal Bilaterally External Ear Exam: Normal External Inspection TM/Canal Exam: Bilateral Normal Nose Exam: Nasal Deviation (TO LEFT), Abrasion, Other (NOSE TENDER WITH OBVIOUS DEFORMITY,) Mouth Exam: Normal Inspection Throat Exam: Normal Inspection - Neck Neck Exam: Trachea Midline - Chest Chest Inspection: Symmetric Chest Wall Rise - Respiratory Respiratory Exam: Normal Lung Sounds Bilat Respiratory Exam: Bilateral Rhonchi, Lower Rhonchi - Cardiovascular Cardiovascular Exam: Regular Rate, Normal Rhythm, Normal Heart Sounds - Abdominal Exam Abdominal Exam: Normal Bowel Sounds, Soft, Distention. negative: Tenderness - Extremities Extremities Exam: negative: Joint Swelling - Neurologic Neurological Exam: Other (SLEEPY BUT AROUSABLE) - Psychiatric Psychiatric Exam: Other (SLEEPY) - Skin Skin Exam: Erythema MDM - Additional Information Additional Information Obtained From: Log Rafter (CARE HOME STAFF.) - Differential Diagnosis Differential Diagnosis: CONTUSION, SPRAIN, STRAIN AND FRACTURE. HEMATOMA FOREHEAD. Course - Treatment Treatment: SEE ORDERS. - Education/Counseling Educated On: Diagnosis, Needs for Follow Up, Other (CARE HOME STAFF) ROR - XRAY XRAY Interpreted by: Radiologist XRAY Findings: REPORT NOTED - Diagnosis Discharge Problem: Cervical strain Traumatic hematoma of forehead Qualifiers: Encounter type: initial encounter Qualified Code(s): S00.83XA - Contusion of other part of head, initial encounter Nasal bone fracture Qualifiers: Encounter type: initial encounter Fracture type: closed Qualified Code(s): S02.2XXA - Fracture of nasal bones, initial encounter for closed fracture - Discharge Plan Disposition: 03 XFER SNF Condition: Stable - Follow ups/Referrals Follow ups/Referrals: CHELLE ALEXANDER [Primary Care Provider] - 3 days - Instructions Instructions: Cervical Strain and Sprain With Rehab-SportsMed, Nasal Fracture, [id number], Hematoma Additional Instructions: RETURN TO ED IF WORSE.
--- NOTE | 2017-06-30 04:48 | CT ---
CT brain without contrast Indication: Hematoma to forehead Comparison: 05/07/2017 Technique: Multiple axial images of the brain were obtained from the skull base to the vertex without administra tion of IV contrast. Findings: Large midline supraorbital frontal scalp hematoma without subjacent fracture. There is moderate bilateral periventricular and deep white matter hypoattenuation which is nonspecifi c however unchanged from prior examination and likely represent sequela of chronic microvascular isch emic disease. Generalized cerebral atrophy is also unchanged. No acute intraparenchymal hemorrhage or mass can be identified. No extra-axial fluid collections are seen. No alteration in the attenuation of the brain parenchyma can be identified to suggest acute o r subacute ischemic change. The ventricular system is symmetric and nondilated. The extracranial st ructures are grossly unremarkable. IMPRESSION: No acute intracranial hemorrhage. Large midline supraorbital frontal scalp hematoma without subjacent fracture. Stable generalized cerebral atrophy with bilateral periventricular deep white matter hypoattenuation which is nonspecific however likely represent sequela of chronic microvascular ischemic disease. Reported By:
--- NOTE | 2017-06-30 04:50 | CT ---
CT facial bones without contrast Indication: Forehead hematoma after fall Comparison: None available Technique: Multiple axial images of the facial structures were obtained from the mandible to superior portions of the orbits. Findings: There is nondisplaced fracture of the left nasal bone with buckling of the knee joint. Bony nasal sep kristina remains intact and midline. The visualized paranasal sinuses appear unremarkable without significant mucosal thickening or air-fl uid levels. The mandible as well as the surrounding bony structures appear unremarkable. The visual ized portions of the orbits as well as the globe within the right and left orbit are unremarkable in their CT appearance. IMPRESSION: Age-indeterminate minimally depressed left nasal bone fracture. Reported By:
--- NOTE | 2017-06-30 04:53 | CT ---
CT cervical spine without contrast Indication: Fall Comparison: None available Technique: Multiple axial images of the cervical spine were obtained from the skull base to the thora cic inlet without administration of IV contrast. Sagittal and coronal reformats were performed and r eviewed. Findings: Alignment of the cervical spine is maintained. No evidence for acute cortical disruption or subluxat ion can be seen. The posterior elements appear unremarkable. The prevertebral soft tissues are norm al in their appearance. In addition, the surrounding paraspinous soft tissues are unremarkable. Multilevel spondylosis noted most severely at C5-6 and C6-7 with moderate bilateral facet arthropathy at C7-T1. IMPRESSION: 1. No evidence for traumatic injury of the cervical spine. Reported By:
== END 2017-06-30 05:28 ==
LOC: ER 03:54
DX: S13.4XXA Sprain of ligaments of cervical spine, initial encounter (principal); S00.83XA Contusion of other part of head, initial encounter; S02.2XXA Fracture of nasal bones, initial encounter for closed fracture; W19.XXXA Unspecified fall, initial encounter; Y92.129 Unspecified place in nursing home as the place of occurrence of the external cause
CPT/HCPCS: 70450; 70486; 72125; 99281; 99282; 99283

== ENCOUNTER → 2017-08-15 | Outpatient (CLI) | payer OTHER ==
[2017-06-30 03:57] VITALS: BP 115/57
--- NOTE | 2017-08-15 16:17 | US ---
ULTRASOUND OF THE THYROID CLINICAL INDICATION: Increased thyroid function COMPARISON: None PROCEDURE: Grayscale and color images of the thyroid was obtained. Findings: Isthmus: Isthmus measures 3 mm. Right thyroid: Right thyroid lobe measures 3.5 x 0.9 x 1.0 cm. Small cysts and nodules which do not m eet criteria for biopsy. Left thyroid: Left thyroid lobe measures 3.6 x 0.8 x 1.2 cm. Multiple tiny nodules which do not meet criteria for FNA biopsy. IMPRESSION: 1. Small bilateral cysts and nodules which do not meet criteria for biopsy. [email or web address] Reported By:
== END ==
LOC: RAD 13:44
PROVIDERS: ATTEND Internal Medicine
DX: E05.80 Other thyrotoxicosis without thyrotoxic crisis or storm (principal)
CPT/HCPCS: 76536

== ENCOUNTER 2023-03-21 10:55 | Observation (INO) ==
[2023-03-21] MEDS ORDERED: ZOFRAN INJ 4 MG VIAL IVP ONE (11:12)
--- NOTE | 2023-03-21 11:13 | DR.NAUSEAF ---
HPI <PONCE AUSTIN - Last Filed: 03/21/23 14:17> Time Seen Time Seen by Provider: 03/21/23 11:10 Primary Care Physician Primary Care Physician: nima Dickson Chief Complaint:: usp charge nurse michelle states patient vitals have been all out wack and patient has been vomiting bile color vomit and patient sats was low in the 80's but they got her up to 90's. COVID-19 Coronavirus risk:travel/contact w/high risk person: No Has patient experienced Coronavirus symptoms: No Source History Provided: Patient Mode of Arrival Mode of Arrival: Stretcher Timing Onset of Chief Complaint: 03/21/23 PMH <PONCE [place]USTIN - Last Filed: 03/21/23 14:17> PMH Past Medical History: Yes Past Medical History: Alzheimers, CHF, COPD, Coronary Artery Disease, Depression, GERD, Hypertension and Hypothyroidism Past Surgical History: Yes Surgical History: Hysterectomy Family History History of Family Medical Conditions: Yes Family Medical History: Diabetes Mellitus, [place], Heart Failure and Hypertension Social History Does patient currently use any type of tobacco product: No Have you used tobacco products in the last 12 months: No Does any household member use tobacco: No Alcohol Use: None Do you use any recreational Drugs:: No Lives With: Other Lives Where: [facility] Travel Risk Coronavirus risk:travel/contact w/high risk person: No Has patient experienced Coronavirus symptoms: No Infectious screening In the last 2 months have you had wt loss of >10#?: NO Have you had fever, night sweats or hemotysis?: No Have you traveled outside the country in the last 6 months?: No Isolation: Standard PE <PONCE AUSTIN - Last Filed: 03/21/23 14:17> Vital Signs Vitals: Vital Signs Temperature 98.0 F Pulse Rate 70 Pulse Rate 78 Pulse Rate 77 Pulse Rate 73 Pulse Rate 76 Pulse Rate 75 Pulse Rate 80 Pulse Rate 70 Pulse Rate 74 Pulse Rate 85 Pulse Rate 78 Pulse Rate 79 Pulse Rate 80 Pulse Rate 84 Pulse Rate 89 Pulse Rate 80 Respiratory Rate 17 Respiratory Rate 16 Respiratory Rate 15 Respiratory Rate 21 Respiratory Rate 19 Respiratory Rate 15 Respiratory Rate 16 Respiratory Rate 16 Respiratory Rate 20 Respiratory Rate 23 Respiratory Rate 19 Respiratory Rate 20 Blood Pressure 87/49 Blood Pressure 122/59 Blood Pressure 128/60 Blood Pressure 101/53 Blood Pressure 127/70 Blood Pressure 141/63 Blood Pressure 140/67 O2 Sat by Pulse Oximetry 100 O2 Sat by Pulse Oximetry 100 O2 Sat by Pulse Oximetry 100 O2 Sat by Pulse Oximetry 100 O2 Sat by Pulse Oximetry 100 O2 Sat by Pulse Oximetry 100 O2 Sat by Pulse Oximetry 100 O2 Sat by Pulse Oximetry 100 O2 Sat by Pulse Oximetry 96 O2 Sat by Pulse Oximetry 97 O2 Sat by Pulse Oximetry 99 O2 Sat by Pulse Oximetry 98 O2 Sat by Pulse Oximetry 97 O2 Sat by Pulse Oximetry 95 O2 Sat by Pulse Oximetry 98 <MOUNA SHULTZ - Last Filed: 03/21/23 17:20> Vital Signs Vitals: Vital Signs Temperature 98.0 F Pulse Rate 70 Pulse Rate 78 Pulse Rate 77 Pulse Rate 73 Pulse Rate 76 Pulse Rate 75 Pulse Rate 80 Pulse Rate 70 Pulse Rate 74 Pulse Rate 85 Pulse Rate 78 Pulse Rate 79 Pulse Rate 80 Pulse Rate 84 Pulse Rate 89 Pulse Rate 80 Respiratory Rate 17 Respiratory Rate 16 Respiratory Rate 15 Respiratory Rate 21 Respiratory Rate 19 Respiratory Rate 15 Respiratory Rate 16 Respiratory Rate 16 Respiratory Rate 20 Respiratory Rate 23 Respiratory Rate 19 Respiratory Rate 20 Blood Pressure 87/49 Blood Pressure 122/59 Blood Pressure 128/60 Blood Pressure 101/53 Blood Pressure 127/70 Blood Pressure 141/63 Blood Pressure 140/67 O2 Sat by Pulse Oximetry 100 O2 Sat by Pulse Oximetry 100 O2 Sat by Pulse Oximetry 100 O2 Sat by Pulse Oximetry 100 O2 Sat by Pulse Oximetry 100 O2 Sat by Pulse Oximetry 100 O2 Sat by Pulse Oximetry 100 O2 Sat by Pulse Oximetry 100 O2 Sat by Pulse Oximetry 96 O2 Sat by Pulse Oximetry 97 O2 Sat by Pulse Oximetry 99 O2 Sat by Pulse Oximetry 98 O2 Sat by Pulse Oximetry 97 O2 Sat by Pulse Oximetry 95 O2 Sat by Pulse Oximetry 98 ROR <PONCE [place]IN - Last Filed: 03/21/23 14:17> Labs Reviewed 03/21/23 11:30 03/21/23 11:30 Laboratory: WBC 12.9 X10^3/uL (3.6-10.0) H 03/21/23 11:30 RBC 4.49 X10^6/uL (3.5-5.4) 03/21/23 11:30 Hgb 12.8 g/dL (12.0-16.0) 03/21/23 11:30 Hct 39.2 % (36.0-47.0) 03/21/23 11:30 MCV 87.3 fL (80.0-100.0) 03/21/23 11:30 MCH 28.5 pg (27.0-34.0) 03/21/23 11:30 MCHC 32.7 g/dL (33.0-35.0) L 03/21/23 11:30 RDW 13.3 % (11.6-16.5) 03/21/23 11:30 Plt Count 279 X10^3/uL (150.0-450.0) 03/21/23 11:30 MPV 7.3 fL (7.4-11.0) L 03/21/23 11:30 Neut % (Auto) 75.2 % (42.0-75.0) H 03/21/23 11:30 Lymph % (Auto) 17.1 % (21.0-51.0) L 03/21/23 11:30 [place] % (Auto) 6.0 % (0.0-13.0) 03/21/23 11:30 Eos % (Auto) 1.0 % (0.9-2.9) 03/21/23 11:30 Baso % (Auto) 0.7 % (0.2-1.0) 03/21/23 11:30 Neut # (Auto) 9.7 x10^3/uL (2.2-4.8) H 03/21/23 11:30 Lymph # (Auto) 2.2 X10^3/uL (1.3-2.9) 03/21/23 11:30 [place] # (Auto) 0.8 x10^3/uL (0.3-0.8) 03/21/23 11:30 Eos # (Auto) 0.1 x10^3/uL (0.0-0.2) 03/21/23 11:30 Baso # (Auto) 0.1 X10^3/uL (0.0-0.1) 03/21/23 11:30 Absolute Nucleated RBC 0.0 /100WBC 03/21/23 11:30 Sodium 137 mmol/L (136-145) 03/21/23 11:30 Corrected Sodium 139 mmol/L (136-145) 03/21/23 11:30 Potassium 3.8 mmol/L (3.5-5.1) 03/21/23 11:30 Chloride 101 mmol/L (98-107) 03/21/23 11:30 Carbon Dioxide 27.4 mmol/L (21-32) 03/21/23 11:30 BUN 27 mg/dL (7-18) H 03/21/23 11:30 Creatinine 0.97 mg/dL (0.55-1.02) 03/21/23 11:30 Est GFR (MDRD) Af Amer > 60 (>60) 03/21/23 11:30 Est GFR (MDRD) Non-Af 58 (>60) L 03/21/23 11:30 Glucose 183 mg/dL (65-99) H 03/21/23 11:30 Calcium 8.8 mg/dL (8.5-10.1) 03/21/23 11:30 Corrected Calcium 9.5 mg/dL (8.5-10.1) 03/21/23 11:30 Total Bilirubin 0.40 mg/dL (0.2-1.0) 03/21/23 11:30 AST 19 Units/L (15-37) 03/21/23 11:30 ALT 26 Units/L (12-78) 03/21/23 11:30 Alkaline Phosphatase 117 Units/L (46-116) H 03/21/23 11:30 Total Protein 7.3 g/dL (6.4-8.2) 03/21/23 11:30 Albumin 3.1 g/dL (3.4-5.0) L 03/21/23 11:30 Globulin 4.2 g/dL (2.5-4.5) 03/21/23 11:30 Albumin/Globulin Ratio 0.7 Ratio (1.1-2.1) L 03/21/23 11:30 <MOUNA CARRINGTON - Last Filed: 03/21/23 17:20> Labs Reviewed Laboratory: WBC 12.9 X10^3/uL (3.6-10.0) H 03/21/23 11:30 RBC 4.49 X10^6/uL (3.5-5.4) 03/21/23 11:30 Hgb 12.8 g/dL (12.0-16.0) 03/21/23 11:30 Hct 39.2 % (36.0-47.0) 03/21/23 11:30 MCV 87.3 fL (80.0-100.0) 03/21/23 11:30 MCH 28.5 pg (27.0-34.0) 03/21/23 11:30 MCHC 32.7 g/dL (33.0-35.0) L 03/21/23 11:30 RDW 13.3 % (11.6-16.5) 03/21/23 11:30 Plt Count 279 X10^3/uL (150.0-450.0) 03/21/23 11:30 MPV 7.3 fL (7.4-11.0) L 03/21/23 11:30 Neut % (Auto) 75.2 % (42.0-75.0) H 03/21/23 11:30 Lymph % (Auto) 17.1 % (21.0-51.0) L 03/21/23 11:30 [place] % (Auto) 6.0 % (0.0-13.0) 03/21/23 11:30 Eos % (Auto) 1.0 % (0.9-2.9) 03/21/23 11:30 Baso % (Auto) 0.7 % (0.2-1.0) 03/21/23 11:30 Neut # (Auto) 9.7 x10^3/uL (2.2-4.8) H 03/21/23 11:30 Lymph # (Auto) 2.2 X10^3/uL (1.3-2.9) 03/21/23 11:30 [place] # (Auto) 0.8 x10^3/uL (0.3-0.8) 03/21/23 11:30 Eos # (Auto) 0.1 x10^3/uL (0.0-0.2) 03/21/23 11:30 Baso # (Auto) 0.1 X10^3/uL (0.0-0.1) 03/21/23 11:30 Absolute Nucleated RBC 0.0 /100WBC 03/21/23 11:30 Sodium 137 mmol/L (136-145) 03/21/23 11:30 Corrected Sodium 139 mmol/L (136-145) 03/21/23 11:30 Potassium 3.8 mmol/L (3.5-5.1) 03/21/23 11:30 Chloride 101 mmol/L (98-107) 03/21/23 11:30 Carbon Dioxide 27.4 mmol/L (21-32) 03/21/23 11:30 BUN 27 mg/dL (7-18) H 03/21/23 11:30 Creatinine 0.97 mg/dL (0.55-1.02) 03/21/23 11:30 Est GFR (MDRD) Af Amer > 60 (>60) 03/21/23 11:30 Est GFR (MDRD) Non-Af 58 (>60) L 03/21/23 11:30 Glucose 183 mg/dL (65-99) H 03/21/23 11:30 Calcium 8.8 mg/dL (8.5-10.1) 03/21/23 11:30 Corrected Calcium 9.5 mg/dL (8.5-10.1) 03/21/23 11:30 Total Bilirubin 0.40 mg/dL (0.2-1.0) 03/21/23 11:30 AST 19 Units/L (15-37) 03/21/23 11:30 ALT 26 Units/L (12-78) 03/21/23 11:30 Alkaline Phosphatase 117 Units/L (46-116) H 03/21/23 11:30 Total Protein 7.3 g/dL (6.4-8.2) 03/21/23 11:30 Albumin 3.1 g/dL (3.4-5.0) L 03/21/23 11:30 Globulin 4.2 g/dL (2.5-4.5) 03/21/23 11:30 Albumin/Globulin Ratio 0.7 Ratio (1.1-2.1) L 03/21/23 11:30 Opioid <PONCE [place] - Last Filed: 03/21/23 14:17> Opioid Risk Tool Age (Jens box if 16-45): No History of Preadolescent Sexual Abuse: No Total: 0 Total Score Risk Category: Low Risk Copyright: Jong HOLDER predicting aberrant behaviors <MOUNA SHULTZ - Last Filed: 03/21/23 17:20> Opioid Risk Tool Total: 0 Total Score Risk Category: Low Risk Discharge Plan Diagnosis Discharge Problem: Abdominal pain, UTI (urinary tract infection), Vomiting Discharge Plan Patient Disposition: ADMITTED INPATIENT Condition: Stable
[2023-03-21] MEDS ORDERED: NS 1,000 ML IV 1,000 ML ONE (11:14)
[2023-03-21] MEDS ORDERED: ZOFRAN INJ 4 MG VIAL ONE (11:15)
[2023-03-21] MEDS: NS 1,000 ML IV 1,000 ML IV SCH ×2 (11:20→16:03)
[2023-03-21 11:40] LABS: BASOPHILS # (AUTO) 0.1 X10^3/uL (0.0-0.1); BASOPHILS % (AUTO) 0.7 % (0.2-1.0); EOSINOPHILS # (AUTO) 0.1 x10^3/uL (0.0-0.2); HEMATOCRIT 39.2 % (36.0-47.0); HEMOGLOBIN 12.8 g/dL (12.0-16.0); LYMPHOCYTES # (AUTO) 2.2 X10^3/uL (1.3-2.9); LYMPHOCYTES % (AUTO) 17.1 % (21.0-51.0); MEAN CORPUSCULAR HEMOGLOBIN 28.5 pg (27.0-34.0); MEAN CORPUSCULAR HGB CONC 32.7 g/dL (33.0-35.0); MEAN CORPUSCULAR VOLUME 87.3 fL (80.0-100.0); MEAN PLATELET VOLUME 7.3 fL (7.4-11.0); MONOCYTES # (AUTO) 0.8 x10^3/uL (0.3-0.8); NEUTROPHILS # (AUTO) 9.7 x10^3/uL (2.2-4.8); NEUTROPHILS % (AUTO) 75.2 % (42.0-75.0); PLATELET COUNT 279 X10^3/uL (150.0-450.0); RED BLOOD COUNT 4.49 X10^6/uL (3.5-5.4); RED CELL DISTRIBUTION WIDTH 13.3 % (11.6-16.5); WHITE BLOOD COUNT 12.9 X10^3/uL (3.6-10.0)
[2023-03-21 11:48] LABS: ALANINE AMINOTRANSFERASE 26 Units/L (12-78); ALBUMIN 3.1 g/dL (3.4-5.0); ALKALINE PHOSPHATASE 117 Units/L (46-116); ASPARTATE AMINO TRANSFERASE 19 Units/L (15-37); BLOOD UREA NITROGEN 27 mg/dL (7-18); CALCIUM 8.8 mg/dL (8.5-10.1); CARBON DIOXIDE 27.4 mmol/L (21-32); CHLORIDE 101 mmol/L (98-107); COR CA(FOR HYPOALB) 9.5 mg/dL (8.5-10.1); COR NA(FOR HYPERGLY) 139 mmol/L (136-145); CREATININE 0.97 mg/dL (0.55-1.02); GLUCOSE 183 mg/dL (65-99); POTASSIUM 3.8 mmol/L (3.5-5.1); SODIUM 137 mmol/L (136-145); TOTAL PROTEIN 7.3 g/dL (6.4-8.2); eGFR NON BLACK RACES 58 (>60)
--- NOTE | 2023-03-21 13:17 | CT ---
EXAM:ABDOMEN/PELVIS W/O CONHISTORY:Bilious vomitingTECHNIQUE:Axial noncontrast images with coronal and sagittal reformats. Dose reduction procedures were used with mA/kv adjusted for body size. This examination is limited due to the lack of intravenous and oral contrast. The examination was performed in this manner at the sole discretion of the ordering caregiver.COMPARISON:NoneFINDINGS:Lung bases are clear. There is a hiatal hernia present. The liver, spleen, adrenal glands, and pancreas are within normal limits to the limitations of an unenhanced examination. No opaque stones are present within the gallbladder. Kidneys are unobstructed and without stones. No ureteral calculi are identified. Appendix not identified with absolute certainty. No secondary signs of appendicitis present. Calcific atherosclerotic changes present in the nondilated abdominal aorta. No intraperitoneal or retroperitoneal lymphadenopathy of significance is identified. There are no findings suggestive of enteritis, colitis, or diverticulitis. No pelvic masses, pelvic fluid, or pelvic lymphadenopathy is identified. There is no evidence for small or large bowel obstruction. Examination of the pelvis demonstrated no evidence for pelvic masses, pelvic fluid, or pelvic lymphadenopathy. No bladder abnormality is identified. No lytic or blastic skeletal lesions of significance are identified. 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
[2023-03-21] MEDS ORDERED: ZOFRAN INJ 4 MG VIAL IVP PRN (14:57)
[2023-03-21 16:12] VITALS: BMI 23.0
[2023-03-21] MEDS ORDERED: PHARMACY CONSULT LTC MEDICATIONS XX SCH (17:00)
[2023-03-21] MEDS: ROCEPHIN VIAL 1 GRAM 1 G in NS 100 ML IV 100 ML IV SCH (18:25)
[2023-03-21] MEDS: NAMENDA TAB 10 MG PO SCH (21:25)
[2023-03-21] MEDS: LIPITOR TAB 10 MG PO SCH (21:25)
[2023-03-21] MEDS: ARICEPT TAB 10 MG PO SCH (21:25)
[2023-03-22] MEDS: NS 1,000 ML IV 1,000 ML IV SCH ×2 (02:02→02:04)
[2023-03-22 06:06] LABS: BASOPHILS # (AUTO) 0.1 X10^3/uL (0.0-0.1); BASOPHILS % (AUTO) 0.8 % (0.2-1.0); EOSINOPHILS # (AUTO) 0.2 x10^3/uL (0.0-0.2); EOSINOPHILS % (AUTO) 2.3 % (0.9-2.9); HEMATOCRIT 32.4 % (36.0-47.0); LYMPHOCYTES # (AUTO) 1.7 X10^3/uL (1.3-2.9); LYMPHOCYTES % (AUTO) 19.1 % (21.0-51.0); MEAN CORPUSCULAR HEMOGLOBIN 29.1 pg (27.0-34.0); MEAN CORPUSCULAR HGB CONC 33.4 g/dL (33.0-35.0); MEAN CORPUSCULAR VOLUME 87.2 fL (80.0-100.0); MEAN PLATELET VOLUME 7.9 fL (7.4-11.0); MONOCYTES # (AUTO) 0.5 x10^3/uL (0.3-0.8); MONOCYTES % (AUTO) 5.5 % (0.0-13.0); NEUTROPHILS # (AUTO) 6.3 x10^3/uL (2.2-4.8); NEUTROPHILS % (AUTO) 72.3 % (42.0-75.0); PLATELET COUNT 243 X10^3/uL (150.0-450.0); RED BLOOD COUNT 3.71 X10^6/uL (3.5-5.4); RED CELL DISTRIBUTION WIDTH 13.5 % (11.6-16.5); WHITE BLOOD COUNT 8.8 X10^3/uL (3.6-10.0)
[2023-03-22 06:14] LABS: ALANINE AMINOTRANSFERASE 19 Units/L (12-78); ALBUMIN 2.4 g/dL (3.4-5.0); ALKALINE PHOSPHATASE 91 Units/L (46-116); ASPARTATE AMINO TRANSFERASE 16 Units/L (15-37); BLOOD UREA NITROGEN 22 mg/dL (7-18); CALCIUM 7.8 mg/dL (8.5-10.1); CARBON DIOXIDE 28.4 mmol/L (21-32); CHLORIDE 105 mmol/L (98-107); COR CA(FOR HYPOALB) 9.1 mg/dL (8.5-10.1); COR NA(FOR HYPERGLY) 140 mmol/L (136-145); GLUCOSE 139 mg/dL (65-99); POTASSIUM 3.4 mmol/L (3.5-5.1); SODIUM 139 mmol/L (136-145); TOTAL PROTEIN 5.8 g/dL (6.4-8.2); eGFR NON BLACK RACES > 60 (>60)
[2023-03-22 06:20] LABS: HEMOGLOBIN 10.8 g/dL (12.0-16.0)
[2023-03-22] MEDS ORDERED: CONSULT PHARMACY - POTASSIUM & MAGNESIUM XX SCH (08:00)
[2023-03-22] MEDS: NAMENDA TAB 10 MG PO SCH ×2 (08:40→20:53)
[2023-03-22] MEDS: SYNTHROID 150 mcg TAB PO SCH (08:40)
[2023-03-22] MEDS: NORVASC TAB 5 MG PO SCH (08:40)
[2023-03-22] MEDS: ROCEPHIN VIAL 1 GRAM 1 G in NS 100 ML IV 100 ML IV SCH (08:41)
[2023-03-22] MEDS: NS + KCL 20 MEQ/L 1,000 ML IV SCH ×2 (20:32→21:16)
[2023-03-22] MEDS: LIPITOR TAB 10 MG PO SCH (20:53)
[2023-03-22] MEDS: ARICEPT TAB 10 MG PO SCH (20:54)
[2023-03-23] MEDS: NS + KCL 20 MEQ/L 1,000 ML IV SCH ×2 (01:49→11:51)
[2023-03-23 06:23] LABS: HEMOGLOBIN 11.1 g/dL (12.0-16.0)
[2023-03-23 06:31] LABS: BASOPHILS # (AUTO) 0.1 X10^3/uL (0.0-0.1); BASOPHILS % (AUTO) 0.7 % (0.2-1.0); EOSINOPHILS # (AUTO) 0.2 x10^3/uL (0.0-0.2); HEMATOCRIT 32.5 % (36.0-47.0); LYMPHOCYTES # (AUTO) 2.2 X10^3/uL (1.3-2.9); LYMPHOCYTES % (AUTO) 21.2 % (21.0-51.0); MEAN CORPUSCULAR HEMOGLOBIN 29.7 pg (27.0-34.0); MEAN CORPUSCULAR HGB CONC 34.3 g/dL (33.0-35.0); MEAN CORPUSCULAR VOLUME 86.7 fL (80.0-100.0); MEAN PLATELET VOLUME 8.3 fL (7.4-11.0); MONOCYTES # (AUTO) 0.6 x10^3/uL (0.3-0.8); MONOCYTES % (AUTO) 5.9 % (0.0-13.0); NEUTROPHILS # (AUTO) 7.2 x10^3/uL (2.2-4.8); NEUTROPHILS % (AUTO) 70.2 % (42.0-75.0); PLATELET COUNT 204 X10^3/uL (150.0-450.0); RED BLOOD COUNT 3.75 X10^6/uL (3.5-5.4); RED CELL DISTRIBUTION WIDTH 12.9 % (11.6-16.5); WHITE BLOOD COUNT 10.3 X10^3/uL (3.6-10.0)
[2023-03-23 06:42] LABS: ALANINE AMINOTRANSFERASE 18 Units/L (12-78); ALBUMIN 2.4 g/dL (3.4-5.0); ALKALINE PHOSPHATASE 94 Units/L (46-116); ASPARTATE AMINO TRANSFERASE 17 Units/L (15-37); BLOOD UREA NITROGEN 12 mg/dL (7-18); CALCIUM 7.9 mg/dL (8.5-10.1); CARBON DIOXIDE 28.4 mmol/L (21-32); CHLORIDE 105 mmol/L (98-107); COR CA(FOR HYPOALB) 9.2 mg/dL (8.5-10.1); COR NA(FOR HYPERGLY) 138 mmol/L (136-145); CREATININE 0.68 mg/dL (0.55-1.02); GLUCOSE 139 mg/dL (65-99); POTASSIUM 4.1 mmol/L (3.5-5.1); SODIUM 137 mmol/L (136-145); TOTAL PROTEIN 5.9 g/dL (6.4-8.2); eGFR NON BLACK RACES > 60 (>60)
[2023-03-23 06:55] LABS: PLATELET MORPHOLOGY COMMENT NORMAL (NORMAL)
[2023-03-23] MEDS: NAMENDA TAB 10 MG PO SCH (08:08)
[2023-03-23] MEDS: NORVASC TAB 5 MG PO SCH (08:08)
[2023-03-23] MEDS: SYNTHROID 150 mcg TAB PO SCH (08:09)
[2023-03-23] MEDS: ROCEPHIN VIAL 1 GRAM 1 G in NS 100 ML IV 100 ML IV SCH (08:09)
[2023-03-23 08:21] VITALS: BP 150/75; PULSE 70; RESP 18; TEMP 97.6; O2SAT 93
--- NOTE | 2023-03-23 11:35 | PCM.PROG ---
Progress Note Progress Note for Day of Date of Exam: 03/22/23 Subjective Subjective: PT IS 82 WF, ER ADMISSION WITH ABDOMINAL PAIN, AMS DUE TO UTI AND DEHYDRATION. PT HAD CT OF ABD/PELVIS IN ER WITHOUT ACUTE FINDINGS. PT HAD CULTURES OBTAINED ON ADMISSION WITH RESULTS PENDING. PT IS CURRENTLY ON ROCEPHIN IV DAILY AND HER HOME MEDICATION HAS BEEN RESUMED. PT HAS CHRONIC DEMENTIA CONTROLLED WITH CURRENT MEDICATION AT THIS TIME. Past Medical Family Social History Allergies: Allergies No Known Drug Allergies Allergy (Verified 03/21/23 17:21) Vital Signs and I&O's Vital Signs: Vital Signs Temperature 97.6 F Temperature 98.1 F Pulse Rate [Right Radial] 70 Pulse Rate [Right Radial] 71 Respiratory Rate 18 Respiratory Rate 20 Blood Pressure [Right Arm] 150/75 Blood Pressure [Right Arm] 149/67 O2 Sat by Pulse Oximetry 93 O2 Sat by Pulse Oximetry 96 Intake and Output: Intake & Output 03/20/23 03/21/23 03/22/23 03/23/23 11:59 11:59 11:59 11:59 Intake Total 1178 / 1178 540 / 540 Balance 1178 / 1178 540 / 540 Physical Exam Oriented: Unable to test Eyes: Normal and Discharge Ear: Normal Nose: Normal Throat: Normal Cardiovascular: Normal : Normal Auscultation: Bowel Sounds: Decreased Tenderness: Epigastric and Mild Musculoskeletal: Motor Deficit Psychiatric: Anxiety, Depression and Other Affect: Flat Speech Pattern: Unclear and Aphasic Laboratory and Diagnostics 03/23/23 06:05 03/23/23 06:05 Labs: 03/21/23 17:39 Blood Blood Culture - Preliminary 03/21/23 17:34 Blood Blood Culture - Preliminary Laboratory WBC 10.3 X10^3/uL (3.6-10.0) H 03/23/23 06:05 RBC 3.75 X10^6/uL (3.5-5.4) 03/23/23 06:05 Hgb 11.1 g/dL (12.0-16.0) L 03/23/23 06:05 Hct 32.5 % (36.0-47.0) L 03/23/23 06:05 MCV 86.7 fL (80.0-100.0) 03/23/23 06:05 MCH 29.7 pg (27.0-34.0) 03/23/23 06:05 MCHC 34.3 g/dL (33.0-35.0) 03/23/23 06:05 RDW 12.9 % (11.6-16.5) 03/23/23 06:05 Plt Count 204 X10^3/uL (150.0-450.0) 03/23/23 06:05 Plt Count Comment Adequate (ADEQUATE) 03/23/23 06:05 MPV 8.3 fL (7.4-11.0) 03/23/23 06:05 Neut % (Auto) 70.2 % (42.0-75.0) 03/23/23 06:05 Lymph % (Auto) 21.2 % (21.0-51.0) 03/23/23 06:05 [place] % (Auto) 5.9 % (0.0-13.0) 03/23/23 06:05 Eos % (Auto) 2.0 % (0.9-2.9) 03/23/23 06:05 Baso % (Auto) 0.7 % (0.2-1.0) 03/23/23 06:05 Neut # (Auto) 7.2 x10^3/uL (2.2-4.8) H 03/23/23 06:05 Lymph # (Auto) 2.2 X10^3/uL (1.3-2.9) 03/23/23 06:05 [place] # (Auto) 0.6 x10^3/uL (0.3-0.8) 03/23/23 06:05 Eos # (Auto) 0.2 x10^3/uL (0.0-0.2) 03/23/23 06:05 Baso # (Auto) 0.1 X10^3/uL (0.0-0.1) 03/23/23 06:05 Absolute Nucleated RBC 0.0 /100WBC 03/23/23 06:05 Plt Morphology Comment Normal (NORMAL) 03/23/23 06:05 RBC Morphology Normal (NORMAL) 03/23/23 06:05 Sodium 137 mmol/L (136-145) 03/23/23 06:05 Corrected Sodium 138 mmol/L (136-145) 03/23/23 06:05 Potassium 4.1 mmol/L (3.5-5.1) 03/23/23 06:05 Chloride 105 mmol/L (98-107) 03/23/23 06:05 Carbon Dioxide 28.4 mmol/L (21-32) 03/23/23 06:05 BUN 12 mg/dL (7-18) 03/23/23 06:05 Creatinine 0.68 mg/dL (0.55-1.02) 03/23/23 06:05 Est GFR (MDRD) Af Amer > 60 (>60) 03/23/23 06:05 Est GFR (MDRD) Non-Af > 60 (>60) 03/23/23 06:05 Glucose 139 mg/dL (65-99) H 03/23/23 06:05 Lactic Acid 1.2 mmol/L (0.4-2.0) 03/21/23 17:34 Calcium 7.9 mg/dL (8.5-10.1) L 03/23/23 06:05 Corrected Calcium 9.2 mg/dL (8.5-10.1) 03/23/23 06:05 Magnesium 2.0 mg/dL (2.0-2.9) 03/22/23 05:23 Total Bilirubin 0.40 mg/dL (0.2-1.0) 03/23/23 06:05 AST 17 Units/L (15-37) 03/23/23 06:05 ALT 18 Units/L (12-78) 03/23/23 06:05 Alkaline Phosphatase 94 Units/L (46-116) 03/23/23 06:05 Creatine Kinase 172 Units/L (26-192) 03/21/23 17:34 Troponin I High Sens 6.8 ng/L (4.0-60.0) 03/21/23 17:34 Total Protein 5.9 g/dL (6.4-8.2) L 03/23/23 06:05 Albumin 2.4 g/dL (3.4-5.0) L 03/23/23 06:05 Globulin 3.5 g/dL (2.5-4.5) 03/23/23 06:05 Albumin/Globulin Ratio 0.7 Ratio (1.1-2.1) L 03/23/23 06:05 Plan (1) UTI (urinary tract infection): Status: Acute Qualifiers: Hematuria presence: with hematuria Urinary tract infection type: site unspecified Qualified Code(s): N39.0 - Urinary tract infection, site not specified; R31.9 - Hematuria, unspecified (2) Altered mental status: Status: Acute (3) Seizure: Status: Acute (4) Vomiting: Status: Acute
--- NOTE | 2023-03-23 11:57 | PCM.DCPLAN ---
DISCHARGE SUMMARY Admission Date Date of Admission: 03/21/23 Discharge Date Discharge Date: 03/23/23 Admission Diagnoses (1) UTI (urinary tract infection): Status: Acute (2) Altered mental status: Status: Acute (3) Seizure: Status: Acute (4) Vomiting: Status: Acute Discharge Medications Discharge Medications: Home Medication List amlodipine 5 mg tablet (Norvasc) 5 mg PO DAILY 03/21/23 [History] docusate sodium 50 mg/5 mL oral liquid 150 mg PO BID 03/21/23 [History] donepezil 10 mg tablet (Aricept) 10 mg PO HS 03/21/23 [History] ergocalciferol (vitamin D2) 50,000 unit tablet 50,000 unit PO DAILY 03/21/23 [History] levothyroxine 150 mcg tablet (Synthroid) 150 mcg PO DAILY 03/21/23 [History] ciprofloxacin HCl 500 mg tablet (Cipro) 500 mg PO BID #20 tabs 03/23/23 [Rx] levofloxacin 500 mg tablet 500 mg PO QDAY #7 tabs 03/23/23 [Rx] Prescriptions: ciprofloxacin HCl [Cipro] [facility] levofloxacin [facility] Course Vital Signs: Vital Signs Temperature 97.6 F Temperature 98.1 F Pulse Rate [Right Radial] 70 Pulse Rate [Right Radial] 71 Respiratory Rate 18 Respiratory Rate 20 Blood Pressure [Right Arm] 150/75 Blood Pressure [Right Arm] 149/67 O2 Sat by Pulse Oximetry 93 O2 Sat by Pulse Oximetry 96 Latest Lab Results: Laboratory Last Values WBC 10.3 X10^3/uL (3.6-10.0) H 03/23/23 06:05 RBC 3.75 X10^6/uL (3.5-5.4) 03/23/23 06:05 Hgb 11.1 g/dL (12.0-16.0) L 03/23/23 06:05 Hct 32.5 % (36.0-47.0) L 03/23/23 06:05 MCV 86.7 fL (80.0-100.0) 03/23/23 06:05 MCH 29.7 pg (27.0-34.0) 03/23/23 06:05 MCHC 34.3 g/dL (33.0-35.0) 03/23/23 06:05 RDW 12.9 % (11.6-16.5) 03/23/23 06:05 Plt Count 204 X10^3/uL (150.0-450.0) 03/23/23 06:05 Plt Count Comment Adequate (ADEQUATE) 03/23/23 06:05 MPV 8.3 fL (7.4-11.0) 03/23/23 06:05 Neut % (Auto) 70.2 % (42.0-75.0) 03/23/23 06:05 Lymph % (Auto) 21.2 % (21.0-51.0) 03/23/23 06:05 [place] % (Auto) 5.9 % (0.0-13.0) 03/23/23 06:05 Eos % (Auto) 2.0 % (0.9-2.9) 03/23/23 06:05 Baso % (Auto) 0.7 % (0.2-1.0) 03/23/23 06:05 Neut # (Auto) 7.2 x10^3/uL (2.2-4.8) H 03/23/23 06:05 Lymph # (Auto) 2.2 X10^3/uL (1.3-2.9) 03/23/23 06:05 [place] # (Auto) 0.6 x10^3/uL (0.3-0.8) 03/23/23 06:05 Eos # (Auto) 0.2 x10^3/uL (0.0-0.2) 03/23/23 06:05 Baso # (Auto) 0.1 X10^3/uL (0.0-0.1) 03/23/23 06:05 Absolute Nucleated RBC 0.0 /100WBC 03/23/23 06:05 Plt Morphology Comment Normal (NORMAL) 03/23/23 06:05 RBC Morphology Normal (NORMAL) 03/23/23 06:05 Sodium 137 mmol/L (136-145) 03/23/23 06:05 Corrected Sodium 138 mmol/L (136-145) 03/23/23 06:05 Potassium 4.1 mmol/L (3.5-5.1) 03/23/23 06:05 Chloride 105 mmol/L (98-107) 03/23/23 06:05 Carbon Dioxide 28.4 mmol/L (21-32) 03/23/23 06:05 BUN 12 mg/dL (7-18) 03/23/23 06:05 Creatinine 0.68 mg/dL (0.55-1.02) 03/23/23 06:05 Est GFR (MDRD) Af Amer > 60 (>60) 03/23/23 06:05 Est GFR (MDRD) Non-Af > 60 (>60) 03/23/23 06:05 Glucose 139 mg/dL (65-99) H 03/23/23 06:05 Lactic Acid 1.2 mmol/L (0.4-2.0) 03/21/23 17:34 Calcium 7.9 mg/dL (8.5-10.1) L 03/23/23 06:05 Corrected Calcium 9.2 mg/dL (8.5-10.1) 03/23/23 06:05 Magnesium 2.0 mg/dL (2.0-2.9) 03/22/23 05:23 Total Bilirubin 0.40 mg/dL (0.2-1.0) 03/23/23 06:05 AST 17 Units/L (15-37) 03/23/23 06:05 ALT 18 Units/L (12-78) 03/23/23 06:05 Alkaline Phosphatase 94 Units/L (46-116) 03/23/23 06:05 Creatine Kinase 172 Units/L (26-192) 03/21/23 17:34 Troponin I High Sens 6.8 ng/L (4.0-60.0) 03/21/23 17:34 Total Protein 5.9 g/dL (6.4-8.2) L 03/23/23 06:05 Albumin 2.4 g/dL (3.4-5.0) L 03/23/23 06:05 Globulin 3.5 g/dL (2.5-4.5) 03/23/23 06:05 Albumin/Globulin Ratio 0.7 Ratio (1.1-2.1) L 03/23/23 06:05 Hospital Course: PT IS 82 WF, ER ADMISSION FROM [facility] AFTER SHE WAS SENT TI ER FOR SECOND TIME WITH ABNORMAL WBCS AND ABDOMINAL PAIN WITH INCREASED AMS AND VOMITING. PT HAD WBC 15 AND UTI. PT WAS STARTED ON IV ROCEPHIN DAILY WITH BLOOD AND URINE CULTURES OBTAINED ON ADMISSION. PTS HOME MEDICATION WAS REVIEWED AND RESUMED. PT HAD A CT OF HEAD ON ADMISSION DUE TO AMS WITHOUT ACUTE FINDINGS. PT UC RESULTS +KLEBSIELLA , SENSATIVE FOR LEVAQUIN PO. PT WAS DC BACK TO [facility] TO RESUME HOME MEDICATION AND CONTINUE PO LEVAQUIN.
== END 2023-03-23 13:30 ==
LOC: MED/SURG 10:55 → ER 10:55 → MED/SURG 14:48
PROVIDERS: ADMIT Internal Medicine; ATTEND Internal Medicine
DX: R41.82 Altered mental status, unspecified; R11.2 Nausea with vomiting, unspecified; N39.0 Urinary tract infection, site not specified; R10.84 Generalized abdominal pain; F32.9 Major depressive disorder, single episode, unspecified; E86.0 Dehydration; G40.89 Other seizures; I25.10 Atherosclerotic heart disease of native coronary artery without angina pectoris; E03.8 Other specified hypothyroidism; I10 Essential (primary) hypertension; J44.9 Chronic obstructive pulmonary disease, unspecified; K21.9 Gastro-esophageal reflux disease without esophagitis